=== PATIENT | male | born 2000 | race Caucasian/White ===

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

== ENCOUNTER 2025-03-10 06:12 | Emergency (ER) | payer SELFPAY ==
[2025-03-10 06:13] VITALS: BP 141/84; PULSE 86; RESP 18; TEMP 36.6; O2SAT 100; BMI 31.0
[2025-03-10 06:15] VITALS: BP 141/84; PULSE 83; RESP 18; TEMP 36.6; O2SAT 100
--- NOTE | 2025-03-10 06:23 | ED.VIS.LOWEX ---
HPI History of Present Illness Chief Complaint: Wound Check Informant: patient Narrative Narrative: 25-year-old male sustained a skin injury to his right lee/lower leg 4 days ago. He states he was working and trying to use his feet on top of a shovel to push it through a root in the ground, but it did not give and sent him into the air falling onto some nearby rocks that caused the injury to his right leg. He states he had a good gash there and he has been managing it since but it has become red and painful over the last day or 2, and he states he saw it oozing some pus. Not a diabetic. No fevers, chills, systemic symptoms of any sort. Tetanus Immunization: >10 years [facility] Medical History no medical history no medical history Home Medications ?Medication ?Instructions ?Recorded ?Last Taken ?Type cephalexin 500 mg capsule 500 mg PO Q6 #40 CAPSULES 03/10/25 Unknown Rx Allergy/AdvReac Type Severity Reaction Status Date / Time No Known Allergies Allergy Verified 03/10/25 06:13 Family History no significant family his Surgical History no surgical history Social History Smoking Status: Current every day smoker tobacco type: e-cigarettes ROS ROS ED Constitutional Constitutional ED: Denies chills or fever(s) Respiratory/Chest Respiratory/Chest: Denies dyspnea Gastrointestinal Gastrointestinal: Denies abdominal pain Musculoskeletal Musculoskeletal: Reports extremity pain; Denies neck pain Integumentary Reports wounds; Denies rash Neurologic Neurologic: Denies paresthesias or weakness EXAM Physical Exam Const Vital Signs: 03/10/25 06:13 03/10/25 06:15 03/10/25 06:27 Temperature 97.9 F 97.9 F 97.9 F Temperature Source Oral Oral Pulse Rate 86 83 76 Respiratory Rate 18 18 18 Blood Pressure 141/84 H 141/84 H 131/74 H Blood Pressure Mean 103 103 93 Pulse Ox 100 100 99 Oxygen Delivery Method Room Air Room Air Positive well nourished and well developed General Appearance ED: well developed and NAD Neck full ROM and supple Back/Spine normal ROM and normal to inspection Extremity full ROM Extremity Narrative: Skin avulsion anterior mid right lower leg, no bone exposed but it is over his lee, the dermis is intact. It is moist with seepage but there is nothing expressible and there is no abscess, but it is quite tender and there is surrounding erythema that does not spread proximally, it is more distal and to the medial and lateral aspects. The calf is spared and soft and nontender. All compartments are nondistended. Full range of motion of the ankle and the knee including passive dorsiflexion of the foot without significant discomfort. No subcutaneous emphysema. No necrotic tissue. No bullae. No other rash other than the erythema. No lymphangitis. Neuro oriented x3, no focal motor deficits and no sensory deficits noted Sensorium / Orientation: alert Psych mental status grossly normal and thought process normal Skin Skin Narrative: Wound on the right mid lower leg see above for details Rashes: no rashes MDM MDM MDM Narrative Medical decision making narrative: Patient is not diabetic, is not septic, his vital signs are normal, this appears to be a localized wound that is causing nearby cellulitis. We are boosting his tetanus status, nurses to cleanse and dress the wound and give the patient some supplies to do so at home, I advised at least 3 times a day for the first day or 2, and putting him on cephalexin we discussed reasons to return he is comfortable with that plan. He refused the tetanus shot here. Discharge Plan Triage Chief Complaint: Wound Check ED Provider: Primo Singh Dx/Rx/DC Orders Clinical Impression: Cellulitis of right lower leg, Avulsion of skin of right lower leg, Need for immunization against tetanus alone Instructions: ED Wound Check (Infection) Prescriptions: New cephalexin [cephalexin] 500 mg capsule 500 mg PO Q6 Qty: 40 0RF Primary Care Provider: Jose E Funez Referrals: Doctor,Your [Non-Staff] - 3-5 Days if not improving (or return to ER if spreading toward hip after 2 days of antibiotics) Print Language: Argentine Disposition Disposition: Home, Self Care
[2025-03-10 06:27] VITALS: BP 131/74; PULSE 76; RESP 18; TEMP 36.6; O2SAT 99
[2025-03-10] MEDS: Cephalexin 250 MG Capsule 500 MG PO (06:29)
== END 2025-03-10 06:59 | disposition home or self-care (01) ==
PROVIDERS: Emergency Provider Emergency Medicine; Visit Provider Emergency Medicine
DX: L03.115 Cellulitis of right lower limb (principal); S81.801A Unspecified open wound, right lower leg, initial encounter; F17.290 Nicotine dependence, other tobacco product, uncomplicated; X58.XXXA Exposure to other specified factors, initial encounter
CPT/HCPCS: 90715; 99283